=== PATIENT | female | born 1980 | race African-American/Black ===

== ENCOUNTER 2022-01-09 07:26 | Inpatient (IN) | payer OTHER ==
[2022-01-06 13:44] VITALS: BMI 40.9
[2022-01-09] MEDS ORDERED: BUPIVACAINE HCL/PF 0.25% (2.5MG/ML) 10 ML VIAL ONE ×2 (07:47→11:29)
[2022-01-09] MEDS ORDERED: PROMETHAZINE HCL 25 MG/1 ML VIAL IVPUSH PRN (08:46)
[2022-01-09] MEDS ORDERED: ONDANSETRON 4 MG/2 ML VIAL IVPUSH PRN ×2 (08:46→11:49)
[2022-01-09] MEDS ORDERED: MIDAZOLAM HCL 2 MG/2 ML SINGLE DOSE VIAL ONE (09:04)
[2022-01-09] MEDS ORDERED: PROPOFOL 20 ML ONE (09:04)
[2022-01-09] MEDS ORDERED: ROCURONIUM BROMIDE 50 MG/5 ML SYRINGE ONE ×4 (09:04→10:43)
[2022-01-09] MEDS ORDERED: GLYCOPYRROLATE 0.2 MG/1 ML VIAL ONE (09:05)
[2022-01-09] MEDS ORDERED: ROPIVACAINE HCL/PF 100 MG/20 ML VIAL ONE (09:10)
[2022-01-09] MEDS ORDERED: BUPIVACAINE LIPOSOME/PF (EXPAREL) 266 MG/20 ML VIAL ONE (09:13)
[2022-01-09] MEDS ORDERED: LIDOCAINE HCL/PF 2% SDV 5ML VIAL ONE (09:43)
[2022-01-09] MEDS ORDERED: SODIUM CHLORIDE 0.9% P/F 10 ML VIAL IJ ONE (09:48)
[2022-01-09] MEDS ORDERED: ceFAZolin SODIUM 1 GM VIAL ONE (09:48)
[2022-01-09] MEDS ORDERED: DEXAMETHASONE SOD PHOSPHATE 4 MG/1 ML VIAL ONE (09:50)
[2022-01-09] MEDS ORDERED: ONDANSETRON 4 MG/2 ML VIAL ONE (09:50)
[2022-01-09] MEDS ORDERED: HYDROmorphone HCL/PF 1 MG/ML VIAL ONE (10:11)
[2022-01-09] MEDS ORDERED: NEOSTIGMINE METHYLSULFATE 0.5 MG/1 ML - 10 ML MDV ONE (11:34)
[2022-01-09] MEDS ORDERED: BUPIVACAINE HCL/PF 0.25% (2.5MG/ML) 10 ML VIAL STI ONE (11:40)
[2022-01-09] MEDS ORDERED: SUGAMMADEX SODIUM 200 MG/2 ML VIAL ONE (11:45)
[2022-01-09] MEDS ORDERED: HYDROmorphone HCL/PF 1 MG/ML VIAL IVPB PRN ×2 (11:52→11:53)
[2022-01-09] MEDS ORDERED: FENTANYL CITRATE/PF 50 MCG/ML VIAL ONE (12:05)
[2022-01-09 12:35] LABS: HEMATOCRIT 31.2 % (32.4-45.2); MCH 24.9 pg (25.7-33.7); MCHC 32.1 g/dl (32.0-36.0); MEAN CELL VOLUME 77.5 fl (80-96); MEAN PLT VOLUME 7.8 fl (7.5-11.1); PLATELET COUNT 429.2 10^3/uL (134-434); RBC 4.02 10^6/uL (3.60-5.2); RDW 16.4 % (11.6-15.6); WHITE BLOOD COUNT 18.1 10^3/uL (4.0-10.8)
[2022-01-09 12:50] LABS: ALBUMIN 3.2 g/dl (3.4-5.0); BILIRUBIN,TOTAL 0.4 mg/dl (0.2-1); CALCIUM 8.2 mg/dl (8.5-10); CREATININE 0.8 mg/dl (0.55-1.3); TOT PROT 6.7 g/dl (6.4-8.2)
[2022-01-09] MEDS ORDERED: METOCLOPRAMIDE HCL INJECTION 10 MG/2 ML VIAL ONE (13:10)
[2022-01-09] MEDS: METOCLOPRAMIDE HCL INJECTION 10 MG/2 ML VIAL IVPUSH SCH ×2 (13:10→18:06)
[2022-01-09] MEDS: SODIUM CHLORIDE 1,000 ML IV SCH ×2 (14:00→20:58)
[2022-01-09] MEDS: FAMOTIDINE 20 MG/50 ML IVPB 20 MG/50 ML MG IVPB SCH (21:00)
[2022-01-09 22:04] LABS: HEMATOCRIT 31.3 % (32.4-45.2); HEMOGLOBIN 10.3 G/dL (10.7-15.3); MCHC 32.8 g/dl (32.0-36.0); MEAN CELL VOLUME 76.4 fl (80-96); MEAN PLT VOLUME 7.6 fl (7.5-11.1); PLATELET COUNT 386.2 10^3/uL (134-434); RDW 15.9 % (11.6-15.6); WHITE BLOOD COUNT 14.7 10^3/uL (4.0-10.8)
[2022-01-09 22:16] LABS: ALBUMIN 3.2 g/dl (3.4-5.0); BILIRUBIN,TOTAL 0.4 mg/dl (0.2-1); CALCIUM 8.3 mg/dl (8.5-10); CREATININE 0.7 mg/dl (0.55-1.3); TOT PROT 6.8 g/dl (6.4-8.2)
[2022-01-09] MEDS ORDERED: ACETAMINOPHEN 325 MG TABLET (FP) PO ONE (22:45)
[2022-01-10] MEDS: METOCLOPRAMIDE HCL INJECTION 10 MG/2 ML VIAL IVPUSH SCH ×4 (07:28→18:30)
[2022-01-10 08:28] LABS: ALBUMIN 3.1 g/dl (3.4-5.0); BILIRUBIN,TOTAL 0.6 mg/dl (0.2-1); CALCIUM 8.2 mg/dl (8.5-10); CREATININE 0.6 mg/dl (0.55-1.3); TOT PROT 6.8 g/dl (6.4-8.2)
[2022-01-10 09:00] LABS: HEMATOCRIT 30.7 % (32.4-45.2); HEMOGLOBIN 10.1 G/dL (10.7-15.3); MCH 24.8 pg (25.7-33.7); MCHC 32.8 g/dl (32.0-36.0); MEAN CELL VOLUME 75.6 fl (80-96); MEAN PLT VOLUME 7.9 fl (7.5-11.1); PLATELET COUNT 398.6 10^3/uL (134-434); RBC 4.06 10^6/uL (3.60-5.2); RDW 16.6 % (11.6-15.6); WHITE BLOOD COUNT 15.8 10^3/uL (4.0-10.8)
[2022-01-10] MEDS: FAMOTIDINE 20 MG/50 ML IVPB 20 MG/50 ML MG IVPB SCH ×2 (09:28→21:31)
[2022-01-10] MEDS: LACTATED RINGERS SOLUTION 1,000 ML IV SCH (09:30)
[2022-01-10] MEDS: SODIUM CHLORIDE 1,000 ML IV SCH (13:16)
[2022-01-11] MEDS: METOCLOPRAMIDE HCL INJECTION 10 MG/2 ML VIAL IVPUSH SCH ×3 (02:00→14:49)
[2022-01-11] MEDS: FAMOTIDINE 20 MG/50 ML IVPB 20 MG/50 ML MG IVPB SCH (09:37)
[2022-01-11] MEDS: LACTATED RINGERS SOLUTION 1,000 ML IV SCH (09:37)
[2022-01-11] MEDS: SODIUM CHLORIDE 1,000 ML IV SCH (14:48)
[2022-01-11 15:35] VITALS: BP 132/84; PULSE 68; RESP 18; TEMP 98.2
== END 2022-01-11 15:35 | disposition home or self-care (01) | DRG 621 ==
LOC: FM/S 07:26
PROVIDERS: ADMIT Surgery; ATTEND Surgery
PROC: 0DB64Z3 Excision of Stomach, Percutaneous Endoscopic Approach, Vertical (ICD-10-PCS; principal; 2022-01-09 08:30)
DX: E66.01 Morbid (severe) obesity due to excess calories (principal); Z68.41 Body mass index [BMI] 40.0-44.9, adult; K29.50 Unspecified chronic gastritis without bleeding
CPT/HCPCS: 36415; 74018-TC-FY; 74240-TC-FY; 80053; 84703; 85027; 86850; 86900; 86901; 88307-TC; 94760